=== PATIENT | female | born 1960 | race Caucasian/White ===

== ENCOUNTER 2017-03-27 03:07 | Inpatient (IN) | payer OTHER, MEDICAID ==
[~2017-03-27] VITALS: Ht 157.5 cm; Wt 59.9 kg
[~2017-03-27 03:07] MED LIST: HUMULIN N U SC
[2017-03-27 04:04] LABS: BASOPHIL % 0.1 % (0-2); PLATELET COUNT 237 x10^3mcL (130-400)
[2017-03-27 04:16] LABS: ALKALINE PHOSPHATASE 176 U/L (46-116); ALT/SGPT 11 U/L (14-59); AST/SGOT 5 U/L (15-37); BILIRUBIN TOTAL 0.17 mg/dL (0.20-1.00); CALCIUM 9.3 mg/dL (8.5-10.1); CARBON DIOXIDE 25.8 mmol/L (21-32); CHLORIDE SERUM 105 mmol/L (98-107); GFR1 > 60 mL/min; POTASSIUM SERUM 3.5 mmol/L (3.5-5.1); SODIUM SERUM 141 mmol/L (136-145); TOTAL PROTEIN, SERUM 7.5 g/dL (6.4-8.2)
[2017-03-27 04:18] LABS: ALBUMIN 2.5 g/dL (3.4-5.0)
[2017-03-27 04:20] LABS: RED CELL DISTRIBUTION WIDTH 14.7 % (11.5-14.5)
[2017-03-27 04:26] LABS: GLUCOSE SERUM 620 mg/dL (74-106)
[2017-03-27] MEDS ORDERED: HUMI (05:00)
[2017-03-27] MEDS ORDERED: LEVEMIR100 U/M1 (05:00)
[2017-03-27 05:58] LABS: CHOLESTEROL/HDL RATIO 3.5; PHOSPHOROUS 3.3 mg/dL (2.5-4.9)
[2017-03-27 06:02] LABS: T3 TOTAL 0.82 ng/mL
[2017-03-27 06:06] LABS: FREE THYROXINE INDEX 3.3 ug/dL (1.4-4.5); T4(THYROXINE) 8.8 ug/dL (4.7-13.3)
[2017-03-27 06:07] LABS: FREE T4 1.4 ng/dL (0.76-1.46)
[2017-03-27 07:19] VITALS: BP 117/70
[2017-03-27 09:25] VITALS: BP 130/67
[2017-03-27 11:38] VITALS: BP 117/70
[2017-03-27 13:45] VITALS: BP 118/63
[2017-03-27 18:40] VITALS: BP 112/64
[2017-03-27 19:00] LABS: UA SPECIFIC GRAVITY >=1.030 (1.005-1.035); microscopic required? YES; urine erythrocyte 3+ (NEGATIVE)
[2017-03-27 19:55] LABS: AMPHETAMINE QUAL UR NONE DETECTED (NEG <=1000)
[2017-03-27 22:36] VITALS: BP 98/62
[2017-03-28 06:26] LABS: BASOPHIL % 0.4 % (0-2); PLATELET COUNT 184 x10^3mcL (130-400)
[2017-03-28 06:40] LABS: RED CELL DISTRIBUTION WIDTH 14.7 % (11.5-14.5)
[2017-03-28 06:46] LABS: CALCIUM 8.4 mg/dL (8.5-10.1); CHLORIDE SERUM 113 mmol/L (98-107); CREATININE SERUM 0.6 mg/dL (0.6-1.0); GFR1 > 60 mL/min; GLUCOSE SERUM 173 mg/dL (74-106); MAGNESIUM 1.7 mg/dL (1.8-2.4); PHOSPHOROUS 2.6 mg/dL (2.5-4.9); POTASSIUM SERUM 3.7 mmol/L (3.5-5.1); SODIUM SERUM 146 mmol/L (136-145)
[2017-03-28 07:02] VITALS: BP 119/63
[2017-03-28 09:31] VITALS: BP 111/64
[2017-03-28 13:50] VITALS: BP 124/59
[2017-03-28 17:24] VITALS: BP 107/71
[2017-03-28 22:06] VITALS: BP 114/59
[2017-03-29 08:57] LABS: BASOPHIL % 0.2 % (0-2); CALCIUM 7.9 mg/dL (8.5-10.1); CHLORIDE SERUM 112 mmol/L (98-107); CREATININE SERUM 0.5 mg/dL (0.6-1.0); GFR1 > 60 mL/min; GLUCOSE SERUM 95 mg/dL (74-106); MAGNESIUM 1.7 mg/dL (1.8-2.4); PLATELET COUNT 181 x10^3mcL (130-400); POTASSIUM SERUM 3.6 mmol/L (3.5-5.1); SODIUM SERUM 144 mmol/L (136-145)
[2017-03-29 10:06] LABS: RED CELL DISTRIBUTION WIDTH 14.6 % (11.5-14.5)
[2017-03-29 10:52] VITALS: BP 108/59
[2017-03-29 14:16] VITALS: BP 118/69
[2017-03-29 18:02] VITALS: BP 104/53
[2017-03-29 22:10] VITALS: BP 103/54
[2017-03-30 05:51] VITALS: BP 107/56
[2017-03-30 07:07] LABS: BASOPHIL % 0.2 % (0-2); PLATELET COUNT 190 x10^3mcL (130-400)
[2017-03-30 07:11] LABS: RED CELL DISTRIBUTION WIDTH 14.6 % (11.5-14.5)
[2017-03-30 07:26] LABS: CALCIUM 8.3 mg/dL (8.5-10.1); CARBON DIOXIDE 27.5 mmol/L (21-32); CHLORIDE SERUM 118 mmol/L (98-107); CREATININE SERUM 0.6 mg/dL (0.6-1.0); GFR1 > 60 mL/min; GLUCOSE SERUM 193 mg/dL (74-106); MAGNESIUM 2.7 mg/dL (1.8-2.4); PHOSPHOROUS 2.7 mg/dL (2.5-4.9); POTASSIUM SERUM 3.6 mmol/L (3.5-5.1); SODIUM SERUM 152 mmol/L (136-145)
[2017-03-30 10:38] VITALS: BP 99/53
[2017-03-30 23:48] VITALS: BP 123/69
[2017-03-31 05:41] VITALS: BP 115/61
[2017-03-31 07:11] LABS: BASOPHIL % 0.3 % (0-2); PLATELET COUNT 213 x10^3mcL (130-400); RED CELL DISTRIBUTION WIDTH 14.3 % (11.5-14.5)
[2017-03-31 07:48] LABS: CALCIUM 8.1 mg/dL (8.5-10.1); CARBON DIOXIDE 27.2 mmol/L (21-32); CHLORIDE SERUM 110 mmol/L (98-107); CREATININE SERUM 0.5 mg/dL (0.6-1.0); GFR1 > 60 mL/min; GLUCOSE SERUM 98 mg/dL (74-106); MAGNESIUM 2.2 mg/dL (1.8-2.4); PHOSPHOROUS 2.6 mg/dL (2.5-4.9); POTASSIUM SERUM 3.2 mmol/L (3.5-5.1); SODIUM SERUM 142 mmol/L (136-145)
[2017-03-31 10:09] VITALS: BP 144/69
[2017-03-31] MEDS ORDERED: LEVEMIR FLEX100 U/M1 SC (14:36)
[2017-03-31] MEDS ORDERED: LIPITOR10 MG PO (14:36)
[2017-03-31] MEDS ORDERED: ADULT LOW DOSE81 MG PO (14:36)
[2017-03-31] MEDS ORDERED: NYSTATIN1 EAC1 PO (14:36)
[2017-03-31] MEDS ORDERED: LEVAQUIN750 MG PO (14:53)
[2017-03-31 18:00] VITALS: BP 122/66
== END 2017-03-31 20:46 | disposition home or self-care (01) | DRG 637 ==
LOC: ED 03:07 → DU 04:57
PROVIDERS: Emergency Medicine; Internal Medicine Gastroenterology; ADMIT Family Medicine
PROC: 0DJD8ZZ Inspection of Lower Intestinal Tract, Via Natural or Artificial Opening Endoscopic (ICD-10-PCS; principal; 2017-03-30 13:00)
DX: E11.65 Type 2 diabetes mellitus with hyperglycemia (principal); N17.0 Acute kidney failure with tubular necrosis; E43 Unspecified severe protein-calorie malnutrition; L89.313 Pressure ulcer of right buttock, stage 3; N39.0 Urinary tract infection, site not specified; D68.69 Other thrombophilia; N82.3 Fistula of vagina to large intestine; B69.0 Cysticercosis of central nervous system; E11.51 Type 2 diabetes mellitus with diabetic peripheral angiopathy without gangrene; E11.59 Type 2 diabetes mellitus with other circulatory complications; L89.322 Pressure ulcer of left buttock, stage 2; L24.9 Irritant contact dermatitis, unspecified cause; K56.41 Fecal impaction; D64.9 Anemia, unspecified; E78.5 Hyperlipidemia, unspecified; R15.9 Full incontinence of feces; R32 Unspecified urinary incontinence; Z68.24 Body mass index [BMI] 24.0-24.9, adult; Z79.4 Long term (current) use of insulin; Z74.01 Bed confinement status
CPT/HCPCS: 45378; 82962; 83880; 84439; 87046; 87046-59; 90732; 97110-GP; 97530-GP; J1200; J1610; J1815; J1956; J2250; J2310; J2765; J2916; J3010; J3480; J3490; J7030; Q0092; Q9966; Q9967

== ENCOUNTER 2017-10-06 09:07 | Inpatient (IN) | payer OTHER, MEDICAID ==
[~2017-10-06] VITALS: Ht 157.5 cm; Wt 59.0 kg
[~2017-10-06 09:07] MED LIST changes: +ADULT LOW DOSE81 MG PO; +HUMI; +LEVAQUIN750 MG PO; +LEVEMIR FLEX100 U/M1 SC; +LEVEMIR100 U/M1; +LIPITOR10 MG PO; +NYSTATIN1 EAC1 PO
[2017-10-06 11:11] LABS: BASOPHIL % 0.5 % (0-2); PLATELET COUNT 252 x10^3mcL (130-400); RED CELL DISTRIBUTION WIDTH 14.2 % (11.5-14.5)
[2017-10-06 11:25] LABS: CALCIUM 9.1 mg/dL (8.5-10.1); CARBON DIOXIDE 32.8 mmol/L (21-32); CHLORIDE SERUM 99 mmol/L (98-107); CREATININE SERUM 0.6 mg/dL (0.6-1.0); GFR1 > 60 mL/min; GLUCOSE SERUM 277 mg/dL (74-106); POTASSIUM SERUM 4.2 mmol/L (3.5-5.1); SODIUM SERUM 136 mmol/L (136-145)
[2017-10-06 11:39] LABS: ALKALINE PHOSPHATASE 165 U/L (46-116); ALT/SGPT 9 U/L (14-59); AST/SGOT 13 U/L (15-37); BILIRUBIN TOTAL 0.3 mg/dL (0.20-1.00); CHOLESTEROL 157 mg/dL (<200); HDL CHOLESTEROL 57 mg/dL (40-60); LIPASE 134 IU/L (73-393); T4(THYROXINE) 9.8 ug/dL (4.7-13.3); TOTAL PROTEIN, SERUM 7.7 g/dL (6.4-8.2)
[2017-10-06 11:40] LABS: ALBUMIN 2.7 g/dL (3.4-5.0); AMYLASE 22 U/L (25-115)
[2017-10-06 13:55] LABS: microscopic required? YES; urine erythrocyte 1+ (NEGATIVE)
[2017-10-06 14:29] LABS: CHOLESTEROL/HDL RATIO 2.8; PHOSPHOROUS 2.9 mg/dL (2.5-4.9)
[2017-10-06 15:05] VITALS: BP 97/56
[2017-10-06 15:09] VITALS: Ht 157.5 cm; Wt 59.0 kg
[2017-10-06 17:50] VITALS: BP 119/64; BP 119/67
[2017-10-06 21:16] VITALS: BP 116/59
[2017-10-07 06:10] VITALS: BP 123/82
[2017-10-07 07:17] LABS: BASOPHIL % 0.8 % (0-2); PLATELET COUNT 217 x10^3mcL (130-400); RED CELL DISTRIBUTION WIDTH 14.1 % (11.5-14.5)
[2017-10-07 07:57] LABS: CALCIUM 8.4 mg/dL (8.5-10.1); CHLORIDE SERUM 107 mmol/L (98-107); CREATININE SERUM 0.5 mg/dL (0.6-1.0); GFR1 > 60 mL/min; GLUCOSE SERUM 82 mg/dL (74-106); MAGNESIUM 1.9 mg/dL (1.8-2.4); PHOSPHOROUS 3.3 mg/dL (2.5-4.9); POTASSIUM SERUM 4.5 mmol/L (3.5-5.1); SODIUM SERUM 140 mmol/L (136-145)
[2017-10-07 08:02] LABS: CARBON DIOXIDE 27.3 mmol/L (21-32)
[2017-10-07 10:35] VITALS: BP 108/52
[2017-10-07 17:45] VITALS: BP 106/58
[2017-10-07 21:30] VITALS: BP 102/51
[2017-10-08 05:46] VITALS: BP 141/70
[2017-10-08 09:02] LABS: BASOPHIL % 0.6 % (0-2); PLATELET COUNT 208 x10^3mcL (130-400); RED CELL DISTRIBUTION WIDTH 14.3 % (11.5-14.5)
[2017-10-08 09:17] LABS: CALCIUM 8.5 mg/dL (8.5-10.1); CARBON DIOXIDE 29.9 mmol/L (21-32); CHLORIDE SERUM 104 mmol/L (98-107); CREATININE SERUM 0.6 mg/dL (0.6-1.0); GFR1 > 60 mL/min; GLUCOSE SERUM 158 mg/dL (74-106); PHOSPHOROUS 4.1 mg/dL (2.5-4.9); SODIUM SERUM 139 mmol/L (136-145)
[2017-10-08 09:43] VITALS: BP 108/64
[2017-10-08 16:49] VITALS: BP 128/62
[2017-10-08 21:29] VITALS: BP 119/60
[2017-10-09 06:27] VITALS: BP 119/61
[2017-10-09 08:00] LABS: CALCIUM 8.9 mg/dL (8.5-10.1); CARBON DIOXIDE 30.7 mmol/L (21-32); CHLORIDE SERUM 104 mmol/L (98-107); CREATININE SERUM 0.5 mg/dL (0.6-1.0); GFR1 > 60 mL/min; GLUCOSE SERUM 109 mg/dL (74-106); MAGNESIUM 1.9 mg/dL (1.8-2.4); PHOSPHOROUS 4.3 mg/dL (2.5-4.9); POTASSIUM SERUM 4.5 mmol/L (3.5-5.1); SODIUM SERUM 140 mmol/L (136-145)
[2017-10-09 08:08] LABS: PLATELET COUNT 220 x10^3mcL (130-400); RED CELL DISTRIBUTION WIDTH 14.4 % (11.5-14.5)
[2017-10-09 09:45] VITALS: BP 94/57
[2017-10-09 11:55] LABS: ATYPICAL LYMPH 3 %; BAND NEUTROPHIL 0 % (0-10); BASOPHIL 0 % (0-2); MONOCYTE 6 % (0-7); SEGMENTED NEUTROPHILS 61 % (37-75); rbc morphology (normal/abnorm) ABNORMAL (NORMAL)
[2017-10-09 11:56] LABS: PLATELET MORPHOLOGY PLATELETS DECREASED
[2017-10-09] MEDS ORDERED: CEFDINIR300 M1 PO (14:09)
[2017-10-09] MEDS ORDERED: LAC PO (14:09)
[2017-10-09 14:20] VITALS: BP 94/57
== END 2017-10-09 18:23 | disposition home or self-care (01) | DRG 570 ==
LOC: ED 09:07 → MU 12:52 → DU 12:52 → MU 10-07 11:06
PROVIDERS: Emergency Medicine; Family Medicine
PROC: 0JBR0ZZ Excision of Left Foot Subcutaneous Tissue and Fascia, Open Approach (ICD-10-PCS; principal; 2017-10-07)
PROC: 0JBQ0ZZ Excision of Right Foot Subcutaneous Tissue and Fascia, Open Approach (ICD-10-PCS; 2017-10-07)
DX: L89.612 Pressure ulcer of right heel, stage 2 (principal); R53.2 Functional quadriplegia; L89.622 Pressure ulcer of left heel, stage 2; Z74.01 Bed confinement status; Z88.0 Allergy status to penicillin; I10 Essential (primary) hypertension; Z83.3 Family history of diabetes mellitus; L89.152 Pressure ulcer of sacral region, stage 2; K43.2 Incisional hernia without obstruction or gangrene; E11.65 Type 2 diabetes mellitus with hyperglycemia; Z79.4 Long term (current) use of insulin; Z79.82 Long term (current) use of aspirin; E11.9 Type 2 diabetes mellitus without complications
CPT/HCPCS: 36600; 82962; 83880; 90714; J0696; J1644; J1815; J1956; J3010; J3490; J7030; Q0092

== ENCOUNTER 2018-03-10 19:59 | Inpatient (IN) | payer OTHER, MEDICAID ==
[~2018-03-10] VITALS: Ht 157.5 cm; Wt 57.9 kg
[~2018-03-10 19:59] MED LIST changes: +CEFDINIR300 M1 PO; +CLEOCIN HCL300 MG PO; +LAC PO
[2018-03-10 21:25] LABS: BASOPHIL % 0.3 % (0-2); PLATELET COUNT 275 x10^3mcL (130-400)
[2018-03-10 21:34] LABS: RED CELL DISTRIBUTION WIDTH 14.9 % (11.5-14.5)
[2018-03-10 21:39] LABS: CALCIUM 8.6 mg/dL (8.5-10.1); CARBON DIOXIDE 29.3 mmol/L (21-32); CHLORIDE SERUM 106 mmol/L (98-107); CREATININE SERUM 0.7 mg/dL (0.6-1.0); GFR1 > 60 mL/min; GLUCOSE SERUM 244 mg/dL (74-106); POTASSIUM SERUM 4.8 mmol/L (3.5-5.1); SODIUM SERUM 139 mmol/L (136-145)
[2018-03-10 21:57] LABS: ALKALINE PHOSPHATASE 177 U/L (46-116); ALT/SGPT 10 U/L (14-59); AST/SGOT 13 U/L (15-37); BILIRUBIN TOTAL 0.2 mg/dL (0.20-1.00); C REACTIVE PROTEIN 6.8 mg/dL (<=0.9); TOTAL PROTEIN, SERUM 8.1 g/dL (6.4-8.2)
[2018-03-10 22:05] LABS: ALBUMIN 2.7 g/dL (3.4-5.0)
[2018-03-10 22:16] LABS: T3 TOTAL 1.39 ng/mL
[2018-03-10 22:21] LABS: FREE T4 1.4 ng/dL (0.76-1.46); FREE THYROXINE INDEX 3.9 ug/dL (1.4-4.5); T4(THYROXINE) 11.4 ug/dL (4.7-13.3)
[2018-03-10 22:22] LABS: CK-MB < 0.5 ng/mL (0-3.6); CREATINE KINASE 49 U/L (26-192)
[2018-03-10 22:26] LABS: ERYTHROCYTE SED RATE 88 mm/hr (0-30)
[2018-03-10 23:25] LABS: microscopic required? YES; urine erythrocyte NEGATIVE (NEGATIVE)
[2018-03-11] MEDS ORDERED: INS5050 SC (00:02)
[2018-03-11] MEDS ORDERED: RISPERDAL0.25 MG PO (00:02)
[2018-03-11] MEDS ORDERED: SENNA8.6 M2 PO (00:02)
[2018-03-11] MEDS ORDERED: GABAPENTIN100 M2 PO (00:02)
[2018-03-11 00:47] VITALS: BP 112/56
[2018-03-11 00:59] VITALS: Ht 157.5 cm; Wt 57.9 kg
[2018-03-11 01:53] LABS: MAGNESIUM 2.3 mg/dL (1.8-2.4); PHOSPHOROUS 3.5 mg/dL (2.5-4.9)
[2018-03-11 05:47] VITALS: BP 106/59
[2018-03-11 06:55] LABS: PLATELET COUNT 215 x10^3mcL (130-400)
[2018-03-11 07:05] LABS: CALCIUM 8.6 mg/dL (8.5-10.1); CARBON DIOXIDE 28.4 mmol/L (21-32); CHLORIDE SERUM 107 mmol/L (98-107); CREATININE SERUM 0.7 mg/dL (0.6-1.0); GFR1 > 60 mL/min; GLUCOSE SERUM 135 mg/dL (74-106); POTASSIUM SERUM 4.3 mmol/L (3.5-5.1); SODIUM SERUM 142 mmol/L (136-145)
[2018-03-11 07:08] LABS: BASOPHIL % 0 % (0-2); RED CELL DISTRIBUTION WIDTH 14.9 % (11.5-14.5)
[2018-03-11 09:28] VITALS: BP 114/64
[2018-03-11 18:10] VITALS: BP 145/82
[2018-03-11 21:46] VITALS: BP 118/70
[2018-03-12 06:03] VITALS: BP 127/68
[2018-03-12 06:19] LABS: BASOPHIL % 0.5 % (0-2); PLATELET COUNT 250 x10^3mcL (130-400)
[2018-03-12 06:48] LABS: CALCIUM 8.9 mg/dL (8.5-10.1); CARBON DIOXIDE 27.7 mmol/L (21-32); CHLORIDE SERUM 104 mmol/L (98-107); CREATININE SERUM 0.5 mg/dL (0.6-1.0); GFR1 > 60 mL/min; GLUCOSE SERUM 120 mg/dL (74-106); POTASSIUM SERUM 4.4 mmol/L (3.5-5.1); SODIUM SERUM 137 mmol/L (136-145)
[2018-03-12 06:49] LABS: RED CELL DISTRIBUTION WIDTH 15.1 % (11.5-14.5)
[2018-03-12 09:32] VITALS: BP 115/48
[2018-03-12 12:45] VITALS: BP 100/55
[2018-03-12 17:10] VITALS: BP 126/69
[2018-03-12 21:39] VITALS: BP 119/69
[2018-03-13 05:08] VITALS: BP 123/61
[2018-03-13 06:27] LABS: CALCIUM 7.8 mg/dL (8.5-10.1); CARBON DIOXIDE 26.8 mmol/L (21-32); CHLORIDE SERUM 107 mmol/L (98-107); CREATININE SERUM 0.3 mg/dL (0.6-1.0); GFR1 > 60 mL/min; GLUCOSE SERUM 122 mg/dL (74-106); POTASSIUM SERUM 4.4 mmol/L (3.5-5.1); SODIUM SERUM 140 mmol/L (136-145)
[2018-03-13 06:51] LABS: BASOPHIL % 0.5 % (0-2); PLATELET COUNT 312 x10^3mcL (130-400)
[2018-03-13 06:55] LABS: RED CELL DISTRIBUTION WIDTH 15.2 % (11.5-14.5)
[2018-03-13 09:54] VITALS: BP 129/70
[2018-03-13 12:36] VITALS: BP 137/75
[2018-03-13 17:35] VITALS: BP 110/48
[2018-03-13 21:06] VITALS: BP 117/61
[2018-03-14 05:44] VITALS: BP 121/68
[2018-03-14 06:30] LABS: BASOPHIL % 0.8 % (0-2); PLATELET COUNT 231 x10^3mcL (130-400)
[2018-03-14 06:40] LABS: RED CELL DISTRIBUTION WIDTH 15.1 % (11.5-14.5)
[2018-03-14 06:43] LABS: CALCIUM 7.8 mg/dL (8.5-10.1); CARBON DIOXIDE 26.8 mmol/L (21-32); CHLORIDE SERUM 110 mmol/L (98-107); CREATININE SERUM 0.6 mg/dL (0.6-1.0); GFR1 > 60 mL/min; GLUCOSE SERUM 138 mg/dL (74-106); SODIUM SERUM 141 mmol/L (136-145)
[2018-03-14 09:20] VITALS: BP 129/59
[2018-03-14 17:03] VITALS: BP 144/65
[2018-03-14 21:26] VITALS: BP 135/68
[2018-03-15 06:05] VITALS: BP 137/63
[2018-03-15 07:45] LABS: BASOPHIL % 0.5 % (0-2); PLATELET COUNT 238 x10^3mcL (130-400)
[2018-03-15 07:54] LABS: RED CELL DISTRIBUTION WIDTH 15.7 % (11.5-14.5)
[2018-03-15 07:57] LABS: MAGNESIUM 1.8 mg/dL (1.8-2.4); PHOSPHOROUS 2.4 mg/dL (2.5-4.9)
[2018-03-15 08:29] VITALS: BP 140/58
[2018-03-15 16:03] VITALS: BP 120/63
[2018-03-15 21:45] VITALS: BP 140/69
[2018-03-16 05:58] VITALS: BP 148/78
[2018-03-16 06:12] LABS: BASOPHIL % 0.4 % (0-2); PLATELET COUNT 264 x10^3mcL (130-400)
[2018-03-16 06:45] LABS: RED CELL DISTRIBUTION WIDTH 15.5 % (11.5-14.5)
[2018-03-16 09:18] VITALS: BP 138/65
[2018-03-16 17:43] VITALS: BP 130/70
[2018-03-16 20:35] VITALS: BP 140/70
[2018-03-17 05:06] VITALS: BP 126/65
[2018-03-17 09:19] VITALS: BP 128/56
[2018-03-17 14:00] VITALS: BP 147/67
[2018-03-17 17:47] VITALS: BP 159/78
[2018-03-17 20:36] VITALS: BP 142/79
[2018-03-18 05:17] VITALS: BP 145/56
[2018-03-18 07:34] LABS: BASOPHIL % 0.6 % (0-2); PLATELET COUNT 251 x10^3mcL (130-400)
[2018-03-18 07:44] LABS: RED CELL DISTRIBUTION WIDTH 15.4 % (11.5-14.5)
[2018-03-18 08:00] LABS: CALCIUM 8.4 mg/dL (8.5-10.1); CARBON DIOXIDE 27.1 mmol/L (21-32); CHLORIDE SERUM 106 mmol/L (98-107); CREATININE SERUM 0.5 mg/dL (0.6-1.0); GFR1 > 60 mL/min; GLUCOSE SERUM 113 mg/dL (74-106); POTASSIUM SERUM 3.8 mmol/L (3.5-5.1); SODIUM SERUM 140 mmol/L (136-145)
[2018-03-18 10:01] VITALS: BP 123/64
[2018-03-18] MEDS ORDERED: LEVEMIR FLEX100 U/M1 SC (10:40)
[2018-03-18] MEDS ORDERED: NEU100 PO (10:42)
[2018-03-18] MEDS ORDERED: BACTRIM DS1 TAB PO (10:43)
[2018-03-18] MEDS ORDERED: COL100 PO (11:05)
[2018-03-18] MEDS ORDERED: LAC PO (11:05)
[2018-03-18 12:45] VITALS: BP 123/64
== END 2018-03-18 18:32 | disposition hospice, home (50) | DRG 622 ==
LOC: ED 19:59 → MU 22:49
PROVIDERS: Family Medicine; Specialist
PROC: 0JBQ0ZZ Excision of Right Foot Subcutaneous Tissue and Fascia, Open Approach (ICD-10-PCS; principal; 2018-03-11)
DX: E11.621 Type 2 diabetes mellitus with foot ulcer (principal); E43 Unspecified severe protein-calorie malnutrition; N39.0 Urinary tract infection, site not specified; L97.418 Non-pressure chronic ulcer of right heel and midfoot with other specified severity; D68.69 Other thrombophilia; E11.51 Type 2 diabetes mellitus with diabetic peripheral angiopathy without gangrene; N17.0 Acute kidney failure with tubular necrosis; E11.65 Type 2 diabetes mellitus with hyperglycemia; E83.39 Other disorders of phosphorus metabolism; M85.871 Other specified disorders of bone density and structure, right ankle and foot; K76.0 Fatty (change of) liver, not elsewhere classified; Z74.01 Bed confinement status; Z79.4 Long term (current) use of insulin; Z79.82 Long term (current) use of aspirin; Z68.23 Body mass index [BMI] 23.0-23.9, adult
CPT/HCPCS: 82962; 83880; 84439; 90715; 97535-GP; J1644; J1815; J1885; J1956; J2060; J2185; J3010; J3370; J3490; J7030; J7050; Q0092